=== PATIENT | female | born 1985 | race Caucasian/White ===

== ENCOUNTER 2018-02-16 16:10 | Emergency (ER) | payer OTHER ==
[~2018-02-16] VITALS: Ht 165.1 cm; Wt 97.3 kg
[~2018-02-16 16:10] MED LIST: ATROVENT INHALE14 GM IH; BCP; CELEXA; LYRICA; PERCOCET 325 MG1 TA2 PO; bcp
[2018-02-16 16:22] VITALS: BP 139/81; PULSE 110; TEMP 99.3
[2018-02-16] MEDS ORDERED: CRUTCHES MC (18:58)
== END 2018-02-16 19:10 | disposition home or self-care (01) ==
LOC: COL.ER 16:10
DX: S93.401A Sprain of unspecified ligament of right ankle, initial encounter (principal); F41.9 Anxiety disorder, unspecified; F32.9 Major depressive disorder, single episode, unspecified; Z98.890 Other specified postprocedural states; X50.0XXA Overexertion from strenuous movement or load, initial encounter